=== PATIENT | female | born 1995 | race Caucasian/White ===

== ENCOUNTER 2017-12-19 23:20 | Emergency (ER) | payer OTHER ==
[~2017-12-19] VITALS: Ht 157.5 cm; Wt 65.9 kg
[2017-12-19 23:27] VITALS: TEMP 98.1
[2017-12-20 00:59] VITALS: BP 114/76; PULSE 75
== END 2017-12-20 01:00 | disposition home or self-care (01) ==
LOC: COL.ER 23:20
DX: S19.9XXA Unspecified injury of neck, initial encounter (principal); Y04.8XXA Assault by other bodily force, initial encounter; Z88.0 Allergy status to penicillin

== ENCOUNTER → 2017-12-19 | Outpatient (REF) | LOC: LDRO 19:09 | DX: M54.2 Cervicalgia (principal); Z04.41 Encounter for examination and observation following alleged adult rape ==

== ENCOUNTER → 2017-12-19 | Outpatient (CLI) | payer OTHER | LOC: LDRO 19:08 | DX: Z04.41 Encounter for examination and observation following alleged adult rape (principal) | CPT/HCPCS: J1580 ==

== ENCOUNTER 2018-01-21 04:35 | Emergency (ER) | payer OTHER ==
[~2018-01-21] VITALS: Ht 157.5 cm; Wt 65.9 kg
[2018-01-21 04:44] VITALS: TEMP 97.7
[2018-01-21 05:34] LABS: BASO % 0.5 % (0.0-2.0); EOS # 0.1 (0.0-0.7); EOS % 0.7 % (0-4.0); GRAN # 4.6 (1.4-6.5); HEMATOCRIT 39.6 % (37.0-47.0); HEMOGLOBIN 13.9 g/dl (12.5-16.0); LYMPH # 2.7 (1.2-3.4); LYMPH % 33.4 % (20.0-51.0); MEAN CELL VOLUME 86 fl (80.0-100.0); MEAN CORPUSCULAR HEMOGLOBIN 30 pg (27.0-31.0); MEAN CORPUSCULAR HGB CONC 35 g/dl (33.0-37.0); MEAN PLATELET VOLUME 9.2 fl (7.4-10.4); MONO # 0.7 (0.1-0.6); MONO % 8.2 % (1.7-9.3); PLATELET COUNT 246 K/mm3 (130-400); RED BLOOD COUNT 4.61 M/mm3 (4.10-5.30); REDCELL DISTRIBUTION WIDTH-CV 11.9 % (11.5-14.5)
[2018-01-21 05:53] LABS: ALANINE AMINOTRANSFERASE 36 U/L (9-52); ALBUMIN 4.3 gm/dL (3.5-5.0); ALKALINE PHOSPHATASE 105 U/L (50-136); ANION GAP 15 mmol/L (7-16); AST,SGOT 60 U/L (15-37); BILIRUBIN,TOTAL 1.2 mg/dL (0.0-1.0); BLOOD UREA NITROGEN 7 mg/dL (7-17); CALCIUM 9.3 mg/dL (8.4-10.2); CARBON DIOXIDE 24 mmol/L (22-30); CHLORIDE 100 mmol/L (98-107); CREATININE, serum 0.78 mg/dL (0.52-1.25); GLUCOSE 95 mg/dL (74-106); LIPASE 65 U/L (23-300); POTASSIUM 3.8 mmol/L (3.4-5.0); SODIUM 139 mmol/L (137-145)
[2018-01-21] MEDS ORDERED: MIRENA52 MG IY (05:54)
[2018-01-21 06:11] LABS: TROPONIN-I < 0.012 ng/mL (0.000-0.034)
[2018-01-21 06:26] LABS: TRICYCLIC ANTIDEPRESS URINE NEGATIVE
[2018-01-21 07:28] VITALS: BP 123/75; PULSE 52
== END 2018-01-21 07:32 | disposition home or self-care (01) ==
LOC: COL.ER 04:35
PROVIDERS: Emergency Medicine
DX: F41.9 Anxiety disorder, unspecified (principal); F15.90 Other stimulant use, unspecified, uncomplicated; F17.210 Nicotine dependence, cigarettes, uncomplicated; Z97.5 Presence of (intrauterine) contraceptive device
CPT/HCPCS: J2060; J7030